=== PATIENT | male | born 1945 | race Caucasian/White ===

== ENCOUNTER 2017-02-26 08:24 | Emergency (ER) | payer MEDICARE, OTHER ==
[2017-02-26] MEDS ORDERED: Clindamycin CAP* 150 MG PO ONE (09:20)
--- NOTE | 2017-02-26 09:27 | ED ---
Skin Complaint - HPI Summary HPI Summary: Patient presents with swelling and redness of the skin around his right eye since this morning. He used a hot pack to decrease swelling with good relief. The only causative event he can relate his symptoms too is yard work yesterday when some debris may have scraped his face. His vision is intact without change. He denies THORNTON, pain, drainage or fevers. - History of Current Complaint Chief Complaint: EDGeneral Time Seen by Provider: 02/26/17 08:38 Stated Complaint: DENTAL PAIN Hx Obtained From: Patient Onset/Duration: Started Hours Ago Timing: Constant Onset Severity: Moderate Current Severity: Moderate Pain Intensity: 4 Skin Location: Face Character: Swelling, Redness Aggravating Symptom(s): Nothing Alleviating Symptom(s): Heat Associated Signs & Symptoms: Negative Related History: Trauma - struck by yard debris - Allergy/Home Medications Allergies/Adverse Reactions: Allergies Allergy/AdvReac Type Severity Reaction Status Date / Time Penicillins [PCN] Allergy Rash Verified 09/23/14 15:41 IV contrast Allergy Hives Uncoded 09/23/14 15:41 PMH/Surg Hx/FS Hx/Imm Hx History: Reports: Hx Kidney Stones - RT RENAL CALCULI - Surgical History Surgery Procedure, Year, and Place: GLAUCOMA - LEFT EYE. REPAIRED HERNIATED DISK. REPAIRED RIGHT ARM ARTERY - Immunization History Date of Tetanus Vaccine: Unk Date of Influenza Vaccine: Fall 2013 Infectious Disease History: No Infectious Disease History: Denies: Traveled Outside the [place] in Last 30 Days - Family History Known Family History: Positive: None - Social History Occupation: Retired Lives: With Family Alcohol Use: None Substance Use Type: Reports: None Smoking Status (MU): Never Smoked Tobacco Review of Systems Negative: Fever Negative: Photophobia, Blurred Vision, Diplopia, Drainage Positive: Edema Positive: Other - erythema around right eye Negative: Headache All Other Systems Reviewed And Are Negative: Yes Physical Exam Triage Information Reviewed: Yes Vital Signs On Initial Exam: Initial Vitals Temp Pulse Resp BP Pulse Ox 98.6 F 68 18 152/65 96 02/26/17 08:26 02/26/17 08:26 02/26/17 08:26 02/26/17 08:26 02/26/17 08:26 Vital Signs Reviewed: Yes Appearance: Positive: Well-Appearing, No Pain Distress, Obese Skin: Positive: Warm, Skin Color Reflects Adequate Perfusion, Dry, Erythema @ - mild erythema inferior to right eye over cheek with mild edema Head/Face: Positive: Normal Head/Face Inspection Eyes: Positive: EOMI - no pain with movement, LALIT, Conjunctiva Clear Dental: Negative: Percussion Tenderness @ Neck: Positive: Supple, Nontender, No Lymphadenopathy Respiratory/Lung Sounds: Positive: Breath Sounds Present Cardiovascular: Positive: RRR Neurological: Positive: Sensory/Motor Intact, Alert, Oriented to Person Place, Time, NV Bundle Intact Distally, Normal Gait Psychiatric: Positive: Affect/Mood Appropriate AVPU Assessment: Alert Diagnostics - Vital Signs Vital Signs Temp Pulse Resp BP Pulse Ox 02/26/17 09:09 98.8 F 60 16 136/74 97 02/26/17 08:26 98.6 F 68 18 152/65 96 - Laboratory Lab Statement: Any lab studies that have been ordered have been reviewed, and results considered in the medical decision making process. Course/Dx - Differential Diagnoses - Skin Complaint Differential Diagnoses: Abscess, Allergic Reaction, Angioedema, Cellulitis, Contact Dermatitis, Local Allergic Reaction, Lymphangitis, MRSA, Urticaria - Diagnoses Provider Diagnoses: Periorbital cellulitis of right eye Discharge - Discharge Plan Condition: Stable Disposition: HOME Prescriptions: Clindamycin Cap(NF) [Cleocin 300 mg Cap(NF)] 300 mg PO Q6H #39 cap Patient Education Materials: Periorbital Cellulitis in Adults (ED) Referrals: Parker Angel MD [Primary Care Provider] - Additional Instructions: Please take the antibiotics until they are completely gone. Continue warm packs as needed and elevate your head on extra pillows the next 2 days to decrease swelling. It is important that your follow-up with your PCP in 1-2 days for recheck to insure you are improving. Return to the emergency department if symptoms worsen.
[2017-02-26 10:02] VITALS: BP 148/70
== END 2017-02-26 10:02 | disposition home or self-care (01) ==
LOC: ED 08:24
DX: L03.213 Periorbital cellulitis (principal); R60.0 Localized edema; K08.89 Other specified disorders of teeth and supporting structures
CPT/HCPCS: 99282; A9270-GY

== ENCOUNTER 2017-07-25 07:47 | Emergency (ER) | payer MEDICARE, OTHER ==
[2017-07-25 07:52] VITALS: BP 144/87
[2017-07-25 11:16] LABS: Hematocrit 41 % (42-52); Hemoglobin 14.1 g/dl (14.0-18.0); Mean Corpuscular HGB Conc 34 g/dl (31-36); Mean Corpuscular Hemoglobin 32 pg (27-31); Mean Corpuscular Volume 94 fL (80-94); Mean Platelet Volume 8 um3 (7.4-10.4); Red Blood Count 4.36 10^6/ul (4.0-5.4); Red Cell Distribution Width 13 % (10.5-15)
[2017-07-25 11:31] LABS: Albumin 4.1 g/dL (3.2-5.2); BUN/Creatinine Ratio 13.6 (8-20); C Reactive Protein 1.83 mg/L (< 5.00); Calcium 9.3 mg/dL (8.6-10.3); EGFR African American 77.6 (>60); EGFR Non-African American 60.3 (>60); Globulin 3.4 g/dL (2-4); Magnesium 1.9 mg/dL (1.9-2.7); Potassium 4.4 mmol/L (3.5-5.0); Total Bilirubin 0.6 mg/dL (0.2-1.0); Total Protein 7.5 g/dL (6.4-8.9)
--- NOTE | 2017-07-25 11:54 | RAD ---
Indication: Unexplained RIGHT foot pain began yesterday. Comparison: No relevant prior exams available on the [facility] P[facility] for comparison. Technique: AP, lateral, and oblique views RIGHT foot. Report: Normal articular alignment. Negative for fracture or radiographic stigmata of stress reaction. Minimal osteophytosis and joint space narrowing at the first metatarsal phalangeal joint. Small plantar fascia origin bone spur. Unremarkable soft tissue contours. IMPRESSION: Mild first metatarsal phalangeal joint osteoarthritis. Small plantar fascia origin bone spur.
[2017-07-25 12:18] LABS: Erythrocyte Sed Rate 39 mm/Hr (0-40)
--- NOTE | 2017-07-25 12:31 | ED ---
Torsten Edmond Thomas, scribed for Hola Solitario MD on 07/25/17 at 1042 . Lower Extremity - HPI Summary HPI Summary: The pt is a 72 y/o M presenting to the ED c/o an episode of pain to his right foot that woke him up two days ago at 03:00 when he was sleeping. He describes this episode of pain as consistent with prior foot cramps. His toes were curled in a spasm for 90 minutes until his toes were able to relax. The pain is described as numbness and tingling. The pain is rated 7/10. Over the last two days, his pain had been gradually resolving until he had another similar episode of pain this AM at 03:00. The pain is aggravated by walking and palpation. It is alleviated by nothing. The patient has treated the pain with Tylenol 650mg TID. Pt denies swelling, erythema, ankle pain, calf pain, leg pain , fever, and chills. He denies any recent increases to his activity level. PMHx : HTN, macular degeneration, glaucoma, HLD. PSHx: back surgery. SHx: former smoker (quit 50 years ago), no alcohol use. FHx: HTN. He is a retired [employer] police officer. - History of Current Complaint Chief Complaint: EDExtremityLower Stated Complaint: RT FOOT PAIN/CRAMPING Time Seen by Provider: 07/25/17 09:37 Hx Obtained From: Patient Onset of Pain: Days - pain began two days ago at 03:00 Onset/Duration: Weeks Severity Currently: Moderate Pain Intensity: 7 Pain Scale Used: 0-10 Numeric Timing: Constant Location: Is Discrete @ - right foot Character Of Pain: Unable To Describe - Patient describes the pain as a numbness and a tingling Associated Signs And Symptoms: Negative: Swelling, Redness, Fever, Other - NEGATIVE: ankle pain, calf pain, leg pain, and chills Aggravating Factor(s): Movement, Other - Palpation Alleviating Factor(s): Nothing - Allergies/Home Medications Allergies/Adverse Reactions: Allergies Allergy/AdvReac Type Severity Reaction Status Date / Time Penicillins [PCN] Allergy Rash Verified 09/23/14 15:41 IV contrast Allergy Hives Uncoded 09/23/14 15:41 PMH/Surg Hx/FS Hx/Imm Hx Previously Healthy: No - Macular degeneration, glaucoma Cardiovascular History: Reports: Hx Hypercholesterolemia, Hx Hypertension History: Reports: Hx Kidney Stones - RT RENAL CALCULI - Surgical History Surgery Procedure, Year, and Place: GLAUCOMA - LEFT EYE. REPAIRED HERNIATED DISK. REPAIRED RIGHT ARM ARTERY - Immunization History Date of Tetanus Vaccine: Unk Date of Influenza Vaccine: Fall 2013 Infectious Disease History: No Infectious Disease History: Denies: Traveled Outside the [place] in Last 30 Days - Family History Known Family History: Positive: Hypertension - Social History Occupation: Retired Alcohol Use: None Substance Use Type: Reports: None Hx Tobacco Use: Yes Smoking Status (MU): Former Smoker - quit 50 years ago Review of Systems Negative: Fever, Chills Positive: Other - R foot pain (sudden onset two days ago during sleep); NEGATIVE : swelling, ankle pain, calf pain, leg pain Negative: Other - NEGATIVE: erythema All Other Systems Reviewed And Are Negative: Yes Physical Exam Triage Information Reviewed: Yes Vital Signs On Initial Exam: Initial Vitals Temp Pulse Resp BP Pulse Ox 96.9 F 59 20 144/87 97 07/25/17 07:49 07/25/17 07:49 07/25/17 07:49 07/25/17 07:49 07/25/17 07:49 Vital Signs Reviewed: Yes Appearance: Positive: Well-Appearing, No Pain Distress Skin: Positive: Warm, Skin Color Reflects Adequate Perfusion Head/Face: Positive: Normal Head/Face Inspection Eyes: Positive: EOMI, LALIT ENT: Positive: Normal ENT inspection, Hearing grossly normal Respiratory/Lung Sounds: Positive: Clear to Auscultation, Breath Sounds Present Cardiovascular: Positive: RRR. Negative: Murmur Abdomen Description: Positive: Nontender Musculoskeletal: Positive: Other - his DP and PT pulses are strong in the right foot without any redness, increased warmth, swelling. He does have tenderness to the medial arch of the right foot and plantar fascia, but no deformity. He has intact strength and sensation right foot. There is no pain or swelling to the right lower leg and no tenderness to palpation of any of the lower leg, ankle or thigh on either his right or left legs. His legs and feet appear symmetric in size, color and they are without deformity. Neurological: Positive: Sensory/Motor Intact, Alert, Oriented to Person Place, Time, CN Intact II-III Psychiatric: Positive: Normal - Darryl Coma Scale Best Eye Response: 4 - Spontaneous Best Motor Response: 6 - Obeys Commands Best Verbal Response: 5 - Oriented Coma Scale Total: 15 Diagnostics - Vital Signs Vital Signs Temp Pulse Resp BP Pulse Ox 07/25/17 07:49 96.9 F 59 20 144/87 97 - Laboratory Result Diagrams: 07/25/17 11:03 07/25/17 11:03 Lab Statement: Any lab studies that have been ordered have been reviewed, and results considered in the medical decision making process. - Radiology XR Foot Xray Interpretation: Positive (See Comments) - Mild first metatarsal phalangeal joint osteoarthritis. Small plantar fascia origin bone spur. ED physician has read this report and agrees. Radiology Interpretation Completed By: Radiologist Lower Extremity Course/Dx - Course Assessment/Plan: The pt is a 72 y/o M with two sudden-onset 90-minute episodes of right foot pain with toe flexion consistent with prior leg cramps. Bloodwork was obtained. XR Foot shows Mild first metatarsal phalangeal joint osteoarthritis. Small plantar fascia origin bone spur. ED physician has read this report and agrees. - Diagnoses Provider Diagnoses: Bone spur, Arthritis, Hypertension Discharge - Discharge Plan Condition: Good Disposition: HOME Patient Education Materials: Plantar Fasciitis (ED), Arthritis (ED), Heel Spur (ED) Referrals: Parker Angel MD [Primary Care Provider] - The documentation as recorded by the Torsten john Thomas accurately reflects the service I personally performed and the decisions made by me, Hola Solitario MD.
== END 2017-07-25 12:40 | disposition home or self-care (01) ==
LOC: ED 07:47
DX: M77.9 Enthesopathy, unspecified (principal); I10 Essential (primary) hypertension; M79.671 Pain in right foot; Z87.891 Personal history of nicotine dependence; M19.91 Primary osteoarthritis, unspecified site
CPT/HCPCS: 36415; 80053; 83605; 83735; 85025; 85652; 86140; 99282

== ENCOUNTER → 2018-11-13 15:35 | Emergency (ER) | payer MEDICARE, OTHER ==
[~2018-11-13 15:35] MED LIST: Acetaminophen TAB* 325 MG PO ONE
--- NOTE | 2018-11-13 18:37 | ED ---
Head Injury - HPI Summary HPI Summary: 73 year old male presents with head injury today. He states he slipped backwards on ice. He did have loss consciousness. He admits to nausea but no vomiting. He admits to dizziness. He is not on blood thinners. Has history of concussion. Also notes neck pain. Has left elbow pain. States pain is greatest when extends left arm. No other injury. No chest or shortness breath. Fall was mechanical fall. He states he has a pretty severe headache. - History Of Current Complaint Chief Complaint: EDHeadInjury Stated Complaint: FALL Time Seen by Provider: 11/13/18 15:45 Pain Intensity: 7 - Allergies/Home Medications Allergies/Adverse Reactions: Allergies Allergy/AdvReac Type Severity Reaction Status Date / Time MS Penicillins [PCN] Allergy Rash Verified 09/23/14 15:41 IV contrast Allergy Hives Uncoded 09/23/14 15:41 PMH/Surg Hx/FS Hx/Imm Hx Endocrine/Hematology History: Denies: Hx Anticoagulant Therapy Cardiovascular History: Reports: Hx Hypercholesterolemia, Hx Hypertension History: Reports: Hx Kidney Stones - RT RENAL CALCULI - Surgical History Surgery Procedure, Year, and Place: GLAUCOMA - LEFT EYE. REPAIRED HERNIATED DISK. REPAIRED RIGHT ARM ARTERY - Immunization History Date of Tetanus Vaccine: Unk Date of Influenza Vaccine: Fall 2013 Infectious Disease History: No Infectious Disease History: Denies: Traveled Outside the [place] in Last 30 Days - Family History Known Family History: Positive: None, Hypertension - Social History Alcohol Use: None Substance Use Type: Reports: None Hx Tobacco Use: Yes Smoking Status (MU): Former Smoker Review of Systems Negative: Fever Negative: Chest Pain Negative: Shortness Of Breath Positive: Myalgia - neck pain, left elbow pain Positive: Headache All Other Systems Reviewed And Are Negative: Yes Physical Exam Triage Information Reviewed: Yes Vital Signs On Initial Exam: Initial Vitals Temp Pulse Resp BP Pulse Ox 98 F 60 16 123/74 97 11/13/18 15:47 11/13/18 15:47 11/13/18 15:47 11/13/18 15:47 11/13/18 15:47 Vital Signs Reviewed: Yes Appearance: Positive: Well-Appearing Skin: Positive: Warm, Dry Head/Face: Positive: Normal Head/Face Inspection, Other - tenderness posterior head Eyes: Positive: Normal, EOMI, LALIT, Conjunctiva Clear ENT: Positive: Normal ENT inspection, Pharynx normal, TMs normal Neck: Positive: Other: - tenderness bilateral neck Respiratory/Lung Sounds: Positive: Clear to Auscultation, Breath Sounds Present Cardiovascular: Positive: Normal, RRR Abdomen Description: Positive: Nontender, Soft Bowel Sounds: Positive: Present Musculoskeletal: Positive: Limited @ - full extension, Other - tenderness left elbow, good pulses Neurological: Positive: Normal Psychiatric: Positive: Normal Diagnostics - Vital Signs Vital Signs Temp Pulse Resp BP Pulse Ox 11/13/18 16:11 128/82 11/13/18 15:47 98 F 60 16 123/74 97 - Laboratory Lab Statement: Any lab studies that have been ordered have been reviewed, and results considered in the medical decision making process. - Radiology brain Radiology Interpretation Completed By: Radiologist Summary of Radiographic Findings: IMPRESSION: 1. No calvarial fracture or acute intracranial hemorrhage. 2. Paranasal sinus mucosal disease as described above. 3. No acute fracture or dislocation of the cervical spine. #4 multilevel degenerative. changes including loss of intervertebral disc height most severely affecting the lower. cervical spine. 4. Calcified atherosclerosis of the bilateral carotid bulbs, more severely affecting the. right than the left. elbow Radiology Interpretation Completed By: Radiologist Summary of Radiographic Findings: IMPRESSION: No radiographically apparent fracture or dislocation of the left elbow. If the patient's symptoms persist further follow-up imaging is recommended. Head Injury Course/Dx Course Of Treatment: 73 year old male presents with head injury today. He states he slipped backwards on ice. He did have loss consciousness. He admits to nausea but no vomiting. He admits to dizziness. He is not on blood thinners. Has history of concussion. Also notes neck pain. Has left elbow pain. States pain is greatest when extends left arm. No other injury. No chest or shortness breath. Fall was mechanical fall. He states he has a pretty severe headache. On exam has a normal neuro exam. With loss consciousness and age got a CT. CT brain normal. CT neck normal. Left elbow x -ray normal. Gave him concussion precautions told to follow with primary. Patient understands and agrees with plan. - Diagnoses Differential Diagnosis/HQI/PQRI: Concussion Without LOC, Contusion, Intracranial Bleed Provider Diagnoses: Head injury, Neck pain, Left elbow pain Discharge - Sign-Out/Discharge Documenting (check all that apply): Patient Departure - Discharge Plan Condition: Good Disposition: HOME Patient Education Materials: Concussion (ED) Referrals: Parker Angel MD [Primary Care Provider] - Additional Instructions: Place ice on area as needed Take Tylenol for headache every 6 hours Modify activities as tolerated Follow up with primary within 5 days Return to ED if develop any new or worsening symptoms - Billing Disposition and Condition Condition: GOOD Disposition: Home
[2018-11-13 19:03] VITALS: BP 135/84
== END | disposition home or self-care (01) ==
LOC: ED 15:35
DX: S09.90XA Unspecified injury of head, initial encounter (principal); R51 Headache; Z87.891 Personal history of nicotine dependence; M54.2 Cervicalgia; W00.0XXA Fall on same level due to ice and snow, initial encounter; Y92.9 Unspecified place or not applicable
CPT/HCPCS: 70450; 72125; 99282; A9270-GY

== ENCOUNTER 2019-07-22 16:03 | Emergency (ER) | payer MEDICARE, OTHER ==
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
--- NOTE | 2019-07-22 18:23 | ED ---
Adult Trauma - HPI Summary HPI Summary: Patient is a 74 y/o M with complaints of right sided rib pain after fall that occurred 07/17/19. He states that he was getting out of a bathtub when he slipped , fell, and struck his right side against a marble vanity. He states that the area was bruised and sore. He states that the area was sore over the next few days with some intermittent episodes of more intense pain. He states Naproxen would alleviate Sx. Yesterday morning, the pain was significantly less. However , later in the day, he carried some heavy objects and his pain worsened. Throughout today, the pain has been progressively worsened as well. He states that movement and stretching aggravates Sx. Home medications and allergies are reviewed. - History of Current Complaint Chief Complaint: EDChestWallPain Stated Complaint: FALL RIB PAIN Time Seen by Provider: 07/22/19 18:11 Hx Obtained From: Patient Mechanism of Injury: Fall Ambulatory at the Scene: Yes Loss of Consciousness: no loss of consciousness Restraints: None Onset/Duration: Started Days Ago, Still Present, Worse Since Onset of Pain: Days, Prior to Arrival Pain Intensity: 9 Pain Scale Used: 0-10 Numeric Location: Other - right ribs Character: Dull - sore Aggravating Factor(s): Movement Alleviating Factor(s): OTC Meds - naproxen Associated Signs & Symptoms: Positive: Negative - Allergy/Home Medications Allergies/Adverse Reactions: Allergies Allergy/AdvReac Type Severity Reaction Status Date / Time MS Penicillins [PCN] Allergy Rash Verified 09/23/14 15:41 IV contrast Allergy Hives Uncoded 09/23/14 15:41 PMH/Surg Hx/FS Hx/Imm Hx Endocrine/Hematology History: Denies: Hx Anticoagulant Therapy Cardiovascular History: Reports: Hx Hypercholesterolemia, Hx Hypertension History: Reports: Hx Kidney Stones - RT RENAL CALCULI - Surgical History Surgery Procedure, Year, and Place: GLAUCOMA - LEFT EYE. REPAIRED HERNIATED DISK. REPAIRED RIGHT ARM ARTERY - Immunization History Date of Tetanus Vaccine: Unk Date of Influenza Vaccine: Fall 2013 Infectious Disease History: No Infectious Disease History: Denies: Traveled Outside the [place] in Last 30 Days - Family History Known Family History: Positive: Hypertension - Social History Alcohol Use: None Substance Use Type: Reports: None Hx Tobacco Use: Yes Smoking Status (MU): Former Smoker Review of Systems Negative: Fever - on vitals, temp is 98 F Musculoskeletal: Other - positive - fall, right ribs pain All Other Systems Reviewed And Are Negative: Yes Physical Exam - Summary Physical Exam Summary: VITAL SIGNS: Reviewed. GENERAL: Patient is a well-developed and nourished male who is lying comfortable in the stretcher. Patient is not in any acute respiratory distress. HEAD AND FACE: No signs of trauma. No ecchymosis, hematomas or skull depressions. No sinus tenderness. EYES: PERRLA, EOMI x 2, No injected conjunctiva, no nystagmus. EARS: Hearing grossly intact. Ear canals and tympanic membranes are within normal limits. MOUTH: Oropharynx within normal limits. NECK: Supple, trachea is midline, no adenopathy, no JVD, no carotid bruit, no c- spine tenderness, neck with full ROM. CHEST: Symmetric. He has tenderness of the right rib cage area with hematoma. LUNGS: Clear to auscultation bilaterally. No wheezing or crackles. CVS: Regular rate and rhythm, S1 and S2 present, no murmurs or gallops appreciated. ABDOMEN: Soft, non-tender. No signs of distention. No rebound, no guarding, and no masses palpated. Bowel sounds are normal. EXTREMITIES: FROM in all major joints, no edema, no cyanosis or clubbing. NEURO: Alert and oriented x 3. No acute neurological deficits. Speech is normal and follows commands. SKIN: Dry and warm. Triage Information Reviewed: Yes Vital Signs On Initial Exam: Initial Vitals Temp Pulse Resp BP Pulse Ox 98.0 F 70 18 165/83 94 07/22/19 16:05 07/22/19 16:05 07/22/19 16:05 07/22/19 16:05 07/22/19 16:05 Vital Signs Reviewed: Yes Procedures - Sedation Patient Received Moderate/Deep Sedation with Procedure: No Diagnostics - Vital Signs Vital Signs Temp Pulse Resp BP Pulse Ox 07/22/19 16:05 98.0 F 70 18 165/83 94 - Laboratory Lab Statement: Any lab studies that have been ordered have been reviewed, and results considered in the medical decision making process. - Radiology CXR WITH RIBS Radiology Interpretation Completed By: Radiologist Summary of Radiographic Findings: IMPRESSION: Minimally displaced fracture at the posterior lateral right eighth rib without. radiographically apparent acute pulmonary abnormality. THIS REPORT WAS REVIEWED BY DR. MEDINA. Re-Evaluation - Re-Evaluation First Eval Re-Evaluation Time: 18:30 Comment: I discussed all the findings and test results with the patient. Patient was instructed to return to the emergency room immediately if any of the symptoms return or worsen . Plan of care was discussed with the patient and understands and agrees. All questions were answered at patient satisfaction. There were no further complaints or concerns. Lung exam before discharge: CTA B /L. Good air exchange. No wheezing or crackles heard. CVS: S1 and S2 present. No murmurs appreciated. Patient is alert and oriented x 3. Patient is hemodynamically stable. Patient will be discharged home with follow up PCP in the next 2-3 days Adult Trauma Course/Dx - Course Assessment/Plan: Patient is a 74-year-old male who presents to the emergency department with a chief complaint of right rib cage pain. The patient reports that he fell a couple days ago and since the patient is having pain. Worse today. He reports heavy lifting today. X-ray of the right rib cage area shows positive 8th rib fracture. There is no pneumothorax. In the ED course the patient was given Toradol for pain and Matthews. The patient was discharged home with a prescription for pain medications and an incentive spirometer. I discussed all the findings and test results with the patient. Patient was instructed to return to the emergency room immediately if any of the symptoms return or worsen . Plan of care was discussed with the patient and understands and agrees. All questions were answered at patient satisfaction. There were no further complaints or concerns. Lung exam before discharge: CTA B/L. Good air exchange. No wheezing or crackles heard. CVS: S1 and S2 present. No murmurs appreciated. Patient is alert and oriented x 3. Patient is hemodynamically stable. Patient will be discharged home with follow up PCP in the next 2-3 days - Diagnoses Provider Diagnoses: Rib fracture Discharge ED - Sign-Out/Discharge Documenting (check all that apply): Patient Departure - discharge - Discharge Plan Condition: Stable Disposition: HOME Prescriptions: HYDROcodone/ACETAMIN 5-325 MG* [Matthews 5-325 TAB*] 1 tab PO Q6H PRN #10 tab MDD 4 PRN Reason: Pain - Moderate Patient Education Materials: Rib Fracture (ED) Referrals: Parker Angel MD [Primary Care Provider] - 3 Days Additional Instructions: PLEASE RETURN TO ED FOR ANY NEW OR WORSENING SYMPTOMS. PLEASE FOLLOW UP WITH YOUR PRIMARY CARE PHYSICIAN WITHIN THREE DAYS. - Billing Disposition and Condition Condition: STABLE Disposition: Home - Attestation Statements Document Initiated by Daya: Yes Documenting Scribe: ELOY RAUSCH Provider For Whom Daya is Documenting (Include Credential): TREVOR MEDINA MD Scribe Attestation: I, ELOY RAUSCH, scribed for TREVOR MEDINA MD on 07/24/19 at 1805. Scribe Documentation Reviewed: Yes Provider Attestation: The documentation as recorded by the ELOY john accurately reflects the service I personally performed and the decisions made by me, TREVOR MEDINA MD Status of Scribe Document: Viewed
[2019-07-22] MEDS ORDERED: Ketorolac *IM* INJ* 60 MG/2 ML VIAL IM ONE (18:33)
[2019-07-22] MEDS ORDERED: HYDROcodone/ACETAMIN 5-325 MG* 1 TAB PO ONE (18:34)
[2019-07-22 18:46] VITALS: BP 152/74
== END 2019-07-22 18:50 | disposition home or self-care (01) ==
LOC: ED 16:03
DX: S22.31XA Fracture of one rib, right side, initial encounter for closed fracture (principal); W01.198A Fall on same level from slipping, tripping and stumbling with subsequent striking against other object, initial encounter; Y93.E8 Activity, other personal hygiene; Y92.002 Bathroom of unspecified non-institutional (private) residence as the place of occurrence of the external cause; I10 Essential (primary) hypertension; Z88.0 Allergy status to penicillin; Z91.041 Radiographic dye allergy status; Z87.891 Personal history of nicotine dependence
CPT/HCPCS: 96372; 99282; J1885